=== PATIENT | female | born 1990 | race Caucasian/White ===

== ENCOUNTER 2023-02-22 05:00 | Emergency (ER) | payer OTHER ==
[2023-02-22 05:09] VITALS: BP 139/90; PULSE 83; RESP 17; TEMP 97.6; BMI 45.7
== END 2023-02-22 06:42 | disposition home or self-care (01) ==
LOC: JER 05:00
DX: G51.0 Bell's palsy (principal)
CPT/HCPCS: 36415; 86618; 99283-25